=== PATIENT | female | born 1965 | race Caucasian/White ===

== ENCOUNTER 2019-11-12 08:52 | Emergency (ER) | payer MEDICARE, MEDICAID ==
[~2019-11-12] VITALS: Ht 175.2 cm; Wt 110.2 kg
--- OUTSIDE RECORDS SUMMARY | 2019-11-12 09:00 | XMS REPORT ---
Author Author [facility]ata [facility] Address [address] [place] [address] Care Team Providers Care Packing Machine Inspector Name Role Phone PAOLA LOVE Unavailable PROBLEMS Unknown Problems ALLERGIES Substance Reaction Event Type Date Status Penicillin V Potassium Unknown Drug Allergy Mar, Activ e Erythromycin Base Unknown Drug Allergy Mar, Active ENCOUNTERS Encounter Location Date Diagnosis [facility] [address] [id number] [address] [place] [id number] Sep, [facility] [address] [id number] [phone] Sep, [facility] [address] [id number] [address] [place] [address] [phone] Jun, Encounter for dental exam an d cleaning w/o abnormal findings Z01.20 [facility] [address] [id number] [address] [place] [address] [phone] Mar, Encounter for dental exam an d cleaning w/o abnormal findings Z01.20 [facility] [place] [address] [id number] [place] [phone] Mar, Dental examination Z01.20 [facility] [address] [id number] [address] [place] [address] [phone] Dec, Encounter for dental examina tion and cleaning without abnormal findings Z01.20 [facility] [address] [id number] [place] [phone] Oct, Dental examination Z01.20 [facility] [address] [id number] [address] [place] [address] [phone] Sep, Encounter for dental examina tion and cleaning without abnormal findings Z01.20 [facility] [address] [address] [id number] [phone] Sep, Dental examination Z01.20 [facility] [address] [id number] [address] [place] [address] [phone] Apr, Encounter for dental examina tion and cleaning without abnormal findings Z01.20 [facility] [place] [address] [id number] [phone] Apr, Dental examination Z01.20 [facility] [address] [id number] [address] [place] [address] [phone] Dec, Encounter for dental examina tion and cleaning without abnormal findings Z01.20 [facility] [place] [address] [id number][place] [phone] Sep, Dental examination Z01.20 [place] [address] [facility] [id number][place] [phone] August, Dental examination Z01.20 [facility] [address] [id number] [address] [place] [address] [phone] August, Encounter for dental examina tion and cleaning without abnormal findings Z01.20 [facility] [address] [id number] [address] [place] [address] [phone] Jun, Dental examination Z01.20 [facility] [address] [id number] [address] [place] [address] [phone] Apr, Encounter for dental examina tion Z01.20 [facility] [address] [id number] [address] [place] [address] [phone] Sep, Dental examination V72.2 IMMUNIZATIONS No Known Immunizations SOCIAL HISTORY Never Assessed REASON FOR VISIT PLAN OF CARE Activity Details Follow Up 3 Months Reason:recall VITAL SIGNS MEDICATIONS Medication Instructions Dosage Frequency Start Date End Date Duration S tatus BusPIRone HCl 10 MG Orally Twice a day 1 tablet 12h Active Ibuprofen 200 MG Orally every 6 hrs 1 tablet as needed 6h Active Atorvastatin Calcium 10 MG Orally Once a day 1 tablet 24h Active Acetaminophen 500 MG Orally every 6 hrs 1 capsule as needed 6h Active Clozapine 100 MG Orally Twice a day 1 tablet on the tong ue and allow to dissolve 12h Active Risperidone Microspheres 37.5 MG Active Therems M Active Delsym 30 MG/5ML Orally every 12 hrs 10 ml as needed 12h Active Docusate Sodium 100 MG Orally Once a day 1 capsule as needed 24h Active Loratadine 10 MG Orally Once a day 1 tablet 24h Active Metoprolol Succinate ER 100 MG Orally Once a day 1 tablet 24h Active Benztropine Mesylate 2 MG Orally Once a day 1 tablet at bedtime 24h Active Citalopram Hydrobromide 40 MG Orally Once a day 0.5 tablet 24h Active Tolterodine Tartrate ER 4 MG Orally Once a day 1 capsule 24h Active Lorazepam 0.5 MG Orally every 6 hrs 1 tablet as needed 6h Active RESULTS No Results PROCEDURES Procedure Date Ordered Result Body Site PERIODIC ORAL EXAMINATION Mar 31, 2017 BITEWINGS - FOUR FILMS Mar 31, 2017 INSTRUCTIONS MEDICATIONS ADMINISTERED No Known Medications
--- OUTSIDE RECORDS SUMMARY | 2019-11-12 09:00 | XMS REPORT ---
Author Author Beata FERNÁNDEZ [facility] Address [address] [place] [address] Phone Unavailable Care Team Providers Care Neurology Director Name Role Phone NATA FERNÁNDEZ Unavailable Unavailable PROBLEMS Type Condition ICD9-CM Code [id number] Code Onset Dates Condition S tatus SNOMED Code Problem Encounter for dental examination Z01.20 Active [id number] ALLERGIES Substance Reaction Event Type Date Status Penicillin V Potassium Unknown Drug Allergy Apr, Activ e Erythromycin Base Unknown Drug Allergy Apr, Active SOCIAL HISTORY No smoking Hx information available PLAN OF CARE Activity Details Follow Up 3 Months Reason:ON SITE REST ORATIVE WITH DR LAYTON VITAL SIGNS MEDICATIONS Unknown Medications RESULTS No Results PROCEDURES Procedure Date Ordered Related Diagnosis Body Site PROPHYLAXIS - ADULT Apr 17, 2016 TOPICAL FLUORIDE VARNISH Apr 17, 2016 IMMUNIZATIONS No Known Immunizations
--- OUTSIDE RECORDS SUMMARY | 2019-11-12 09:00 | XMS REPORT ---
Author Author Beata LAYTON Organization [facility] Address [address] [place] [address] Care Team Providers Care Horse Stud Worker Name Role Phone SHAE LAYTON Unavailable PROBLEMS Type Condition ICD9-CM Code [id number] Code Onset Dates Condition S tatus SNOMED Code Problem Encounter for dental examination Z01.20 Active [id number] ALLERGIES Unknown Allergies SOCIAL HISTORY No smoking Hx information available PLAN OF CARE Activity Details Follow Up prn Reason:restorative VITAL SIGNS MEDICATIONS Unknown Medications RESULTS No Results PROCEDURES Procedure Date Ordered Related Diagnosis Body Site PERIODIC ORAL EXAMINATION Apr 16, 2016 BITEWINGS - FOUR FILMS Apr 16, 2016 IMMUNIZATIONS No Known Immunizations
--- OUTSIDE RECORDS SUMMARY | 2019-11-12 09:00 | XMS REPORT | Continuity of Care Document ---
Author Organization Unknown Address Unknown Phone Unavailable Allergies There is no data. Medications There is no data. Problems There is no data. Procedures There is no data. Results Test Result Range CMP - 01/09/19 09:04 GLUCOSE 272 mg/dL 65-99 UREA NITROGEN (BUN) 16 mg/dL 7-25 CREATININE 1.20 mg/dL 0.50-1.05 eGFR NON-AFR. ITALIAN 52 mL/min/1.73m2 > OR = 60 eGFR 60 mL/min/1.73m2 > OR = 60 BUN/CREATININE RATIO 13 (calc) 6-22 SODIUM 144 mmol/L 135-146 POTASSIUM 4.4 mmol/L 3.5-5.3 CHLORIDE 106 mmol/L 98-110 CARBON DIOXIDE 31 mmol/L 20-32 CALCIUM 9.0 mg/dL 8.6-10.4 PROTEIN, TOTAL 6.2 g/dL 6.1-8.1 ALBUMIN 3.7 g/dL 3.6-5.1 GLOBULIN 2.5 g/dL (calc) 1.9-3.7 ALBUMIN/GLOBULIN RATIO 1.5 (calc) 1.0-2. 5 BILIRUBIN, TOTAL 0.8 mg/dL 0.2-1.2 ALKALINE PHOSPHATASE 76 U/L 33-130 AST 24 U/L 10-35 ALT 30 U/L 6-29 A1C - 03/20/19 08:11 HEMOGLOBIN A1c 7.1 % of total Hgb <5.7 CBC - 07/10/19 10:46 WHITE BLOOD CELL COUNT 10.2 Thousand/uL 3.8-10.8 RED BLOOD CELL COUNT 4.41 Million/uL 3.8 0-5.10 HEMOGLOBIN 13.4 g/dL 11.7-15.5 HEMATOCRIT 40.8 % 35.0-45.0 MCV 92.5 fL 80.0-100.0 MCH 30.4 pg 27.0-33.0 MCHC 32.8 g/dL 32.0-36.0 RDW 12.7 % 11.0-15.0 PLATELET COUNT 229 Thousand/uL 140-400 MPV 11.2 fL 7.5-12.5 ABSOLUTE NEUTROPHILS 7497 cells/uL 1500- 7800 ABSOLUTE LYMPHOCYTES 1724 cells/uL 850-3 900 ABSOLUTE MONOCYTES 724 cells/uL 200-950 ABSOLUTE EOSINOPHILS 204 cells/uL 15-500 ABSOLUTE BASOPHILS 51 cells/uL 0-200 NEUTROPHILS 73.5 % NRG LYMPHOCYTES 16.9 % NRG MONOCYTES 7.1 % NRG EOSINOPHILS 2.0 % NRG BASOPHILS 0.5 % NRG CMP - 10/03/19 08:22 GLUCOSE 163 mg/dL 65-99 UREA NITROGEN (BUN) 17 mg/dL 7-25 CREATININE 1.05 mg/dL 0.50-1.05 eGFR NON-AFR. ITALIAN 61 mL/min/1.73m2 > OR = 60 eGFR 70 mL/min/1.73m2 > OR = 60 BUN/CREATININE RATIO NOT APPLICABLE (calc) 6-22 SODIUM 144 mmol/L 135-146 POTASSIUM 4.5 mmol/L 3.5-5.3 CHLORIDE 105 mmol/L 98-110 CARBON DIOXIDE 43 mmol/L 20-32 CALCIUM 9.2 mg/dL 8.6-10.4 PROTEIN, TOTAL 6.6 g/dL 6.1-8.1 ALBUMIN 4.0 g/dL 3.6-5.1 GLOBULIN 2.6 g/dL (calc) 1.9-3.7 ALBUMIN/GLOBULIN RATIO 1.5 (calc) 1.0-2. 5 BILIRUBIN, TOTAL 0.9 mg/dL 0.2-1.2 ALKALINE PHOSPHATASE 69 U/L 37-153 AST 14 U/L 10-35 ALT 18 U/L 6-29 CBC - 10/03/19 08:22 WHITE BLOOD CELL COUNT 10.4 Thousand/uL 3.8-10.8 RED BLOOD CELL COUNT 4.67 Million/uL 3.8 0-5.10 HEMOGLOBIN 13.9 g/dL 11.7-15.5 HEMATOCRIT 42.9 % 35.0-45.0 MCV 91.9 fL 80.0-100.0 MCH 29.8 pg 27.0-33.0 MCHC 32.4 g/dL 32.0-36.0 RDW 12.3 % 11.0-15.0 PLATELET COUNT 233 Thousand/uL 140-400 MPV 10.8 fL 7.5-12.5 ABSOLUTE NEUTROPHILS 6822 cells/uL 1500- 7800 ABSOLUTE LYMPHOCYTES 2382 cells/uL 850-3 900 ABSOLUTE MONOCYTES 884 cells/uL 200-950 ABSOLUTE EOSINOPHILS 250 cells/uL 15-500 ABSOLUTE BASOPHILS 62 cells/uL 0-200 NEUTROPHILS 65.6 % NRG LYMPHOCYTES 22.9 % NRG MONOCYTES 8.5 % NRG EOSINOPHILS 2.4 % NRG BASOPHILS 0.6 % NRG A1C - 10/03/19 08:22 HEMOGLOBIN A1c 6.9 % of total Hgb <5.7 Encounters ACCT No. Visit Date/Time Discharge Status Pt. Type Provider Facility Loc./Unit Complaint 11/10/2019 07:30:00 [id number] 10/03/2019 08:00:00 Document Registration [id number] 07/10/2019 09:00:00 Document Registration [id number] 03/20/2019 08:00:00 Document Registration [id number] 01/09/2019 09:00:00 Document Registration
--- OUTSIDE RECORDS SUMMARY | 2019-11-12 09:00 | XMS REPORT ---
Author Author Beata FERNÁNDEZ Organization [facility] Address [address] [place] [address] Phone Unavailable Care Team Providers Care White Sugar Supervisor Name Role Phone NATA FERNÁNDEZ Unavailable Unavailable PROBLEMS Unknown Problems ALLERGIES Substance Reaction Event Type Date Status Penicillin V Potassium Unknown Drug Allergy Dec, Activ e Erythromycin Base Unknown Drug Allergy Dec, Active ENCOUNTERS Encounter Location Date Diagnosis [facility] [address] [id number] [place] [address] [phone] Jun, Encounter for dental exam an d cleaning w/o abnormal findings Z01.20 [facility] [address] [id number] [address] [place] [address] [phone] Mar, Encounter for dental exam an d cleaning w/o abnormal findings Z01.20 [facility] [place] [address] [id number] [place], [place] [phone] Mar, Dental examination Z01.20 [facility] [address] [id number] [address] [place] [address] [phone] Dec, Encounter for dental examina tion and cleaning without abnormal findings Z01.20 [facility] [address] [id number] [place] [phone] Oct, Dental examination Z01.20 [facility] [address] [id number] [address] [place] [address] [phone] Sep, Encounter for dental examina tion and cleaning without abnormal findings [facility]01.20 [facility] [address] [id number] [phone] Sep, Dental examination Z01.20 [facility] [address] [id number] [address] [place] [address] [phone] Apr, Encounter for dental examina tion and cleaning without abnormal findings Z01.20 [facility] [address] [id number] [phone] Apr, Dental examination Z01.20 [facility] [address] [id number] [address] [place] [address] [phone] Dec, Encounter for dental examina tion and cleaning without abnormal findings Z01.20 [facility] [place] [address] [facility] [address] [id number] [phone] Sep, Dental examination Z01.[address] [id number] [phone] August, Dental examination Z01.20 [facility] [address] [id number] [address] [place] [address] [phone] August, Encounter for dental examina tion and cleaning without abnormal findings Z01.20 [facility] [address] [id number] [address] [place] [address] [phone] Jun, Dental examination Z01.20 [facility] [address] [id number] [address] [place] [address] [phone] Apr, Encounter for dental examina tion Z01.20 [facility] [address] [id number] [address] [place] [address] [phone] Sep, Dental examination V72.2 IMMUNIZATIONS No Known Immunizations SOCIAL HISTORY Never Assessed REASON FOR VISIT ADULT OUTREACH [facility] PLAN OF CARE Activity Details Follow Up 3 Months Reason:ON SITE RECA LL VITAL SIGNS MEDICATIONS Medication Instructions Dosage Frequency Start Date End Date Duration S tatus BusPIRone HCl 10 MG Orally Twice a day 1 tablet 12h Active Delsym 30 MG/5ML Orally every 12 hrs 10 ml as needed 12h Active Acetaminophen 500 MG Orally every 6 hrs 1 capsule as needed 6h Active Citalopram Hydrobromide 40 MG Orally Once a day 0.5 tablet 24h Active Docusate Sodium 100 MG Orally Once a day 1 capsule as needed 24h Active Tolterodine Tartrate ER 4 MG Orally Once a day 1 capsule 24h Active Metoprolol Succinate ER 100 MG Orally Once a day 1 tablet 24h Active Clozapine 100 MG Orally Twice a day 1 tablet on the tong ue and allow to dissolve 12h Active Ibuprofen 200 MG Orally every 6 hrs 1 tablet as needed 6h Active Loratadine 10 MG Orally Once a day 1 tablet 24h Active Lorazepam 0.5 MG Orally every 6 hrs 1 tablet as needed 6h Active Atorvastatin Calcium 10 MG Orally Once a day 1 tablet 24h Active Benztropine Mesylate 2 MG Orally Once a day 1 tablet at bedtime 24h Active Therems M Active Risperidone Microspheres 37.5 MG Active RESULTS No Results PROCEDURES Procedure Date Ordered Result Body Site PROPHYLAXIS - ADULT Dec 11, 2016 TOPICAL FLUORIDE VARNISH Dec 11, 2016 INSTRUCTIONS MEDICATIONS ADMINISTERED No Known Medications
--- OUTSIDE RECORDS SUMMARY | 2019-11-12 09:00 | XMS REPORT ---
Author Author Beata LAYTON [facility] Address [address] [place] [address] Care Team Providers Care Clean In Places Operator Name Role Phone SHAE LAYTON Unavailable PROBLEMS Type Condition ICD9-CM Code [id number] Code Onset Dates Condition S tatus SNOMED Code Problem Encounter for dental examination Z01.20 Active [id number] ALLERGIES No Information SOCIAL HISTORY Never Assessed PLAN OF CARE Activity Details Follow Up Restorative Reason: VITAL SIGNS MEDICATIONS No Known Medications RESULTS No Results PROCEDURES Procedure Date Ordered Result Body Site AMALGAM-ONE SURFACE PRIMARY/PERM September 10, 2016 AMALGAM-ONE SURFACE PRIMARY/PERM September 10, 2016 Dental Outreach adjust balance September 10, 2016 Billing Notes on claim September 10, 2016 IMMUNIZATIONS No Known Immunizations
--- OUTSIDE RECORDS SUMMARY | 2019-11-12 09:00 | XMS REPORT ---
Author Author Beata GOVEA Organization [employer] Address Unknown Phone Unavailable Care Team Providers Care Team Assembler Name Role Phone KISHORE GOVEA CP Unavailable Allergies, Adverse Reactions, Alerts Substance Reaction Event Type Penicillin V Potassium Info Not Available Drug Allergy Erythromycin Base Info Not Available Drug Allergy Problems Problem Type Condition Code Onset Dates Condition Statu s Assessment Encounter for dental examination Z01.20 Active Problem Encounter for dental examination Z01.20 Active Medications Medication Code System Code Instructions Start Date End Date Status Dosage Acetaminophen [facility] [address]-15 500 MG Orally every 6 hrs 1 capsule as needed Citalopram Hydrobromide [facility] [address]-17 40 MG Orally Once a day 0.5 tablet Therems M [facility] 0 not defined Ibuprofen [facility] [address]-11 200 MG Orally every 6 hrs 1 tablet as needed Tolterodine Tartrate ER [facility] [address]-48 4 MG Orally Once a day 1 capsule BusPIRone HCl [facility] [address]-88 10 MG Orally Twice a day 1 tablet Risperidone Microspheres [facility] [address]-21 37.5 MG Intramuscular not defined Metoprolol Succinate ER [facility] [address]-39 100 MG Orally Once a day 1 tablet Clozapine [facility] [address]-24 100 MG Orally Twice a day 1 tablet on the tongue and allow to dissolve Delsym [facility] [address]-40 30 MG/5ML Orally every 12 hrs 10 ml as needed Docusate Sodium [facility] [address]-52 100 MG Orally Once a day 1 capsule as needed Lorazepam [facility] [address]-65 0.5 MG Orally every 6 hrs 1 tablet as needed Benztropine Mesylate [facility] [address]-20 2 MG Orally Once a day 1 tablet at bedtime Atorvastatin Calcium [facility] [address]-30 10 MG Orally Once a day 1 tablet Loratadine [facility] [address]-56 10 MG Orally Once a day 1 tablet Procedures Procedure Coding System Code Date INTRAORL-PERIAPICAL 1 FILM 74809 CPT-4 D0220 Apr 17, 2015 INTRAORL-PERIAPICAL EA ADD FILM CPT-4 D0230 Apr 17, 2015 PERIODIC ORAL EXAMINATION CPT-4 D0120 Apr BITEWINGS - FOUR FILMS CPT-4 D0274 Apr 17, 016 INTRAORL-PERIAPICAL EA ADD FILM CPT-4 D0230 Apr 17, 2015 TOPICAL FLUORIDE VARNISH CPT-4 D1206 Apr 17, 2015 PROPHYLAXIS - ADULT CPT-4 D1110 Apr 17, 2015 Vital Signs Date/Time: Apr 17, 2015 Blood Pressure Diastolic 70 mmHg Blood Pressure Systolic 112 mmHg Cardiac Monitoring Heart Rate 83 bpm Results No Known Results Summary Purpose [employer] Submission
--- OUTSIDE RECORDS SUMMARY | 2019-11-12 09:00 | XMS REPORT ---
Author Author Beata FERNÁNDEZ Organization [facility] Address [address] [place] [address] Phone Unavailable Care Team Providers Care Depot Manager Name Role Phone NATA FERNÁNDEZ Unavailable Unavailable PROBLEMS Type Condition ICD9-CM Code PRI67-EM Code Onset Dates Condition S tatus SNOMED Code Problem Encounter for dental examination Z01.20 Active 049359812 ALLERGIES Substance Reaction Event Type Date Status Penicillin V Potassium Unknown Drug Allergy Sep, Activ e Erythromycin Base Unknown Drug Allergy Sep, Active SOCIAL HISTORY Never Assessed PLAN OF CARE Activity Details Follow Up KER[place]/3 Months Reason:ON SITE RESTORATIVE/RECALL VITAL SIGNS MEDICATIONS Medication Instructions Dosage Frequency Start Date End Date Duration S tatus Ibuprofen 200 MG Orally every 6 hrs 1 tablet as needed 6h Active Lorazepam 0.5 MG Orally every 6 hrs 1 tablet as needed 6h Active Docusate Sodium 100 MG Orally Once a day 1 capsule as needed 24h Active Delsym 30 MG/5ML Orally every 12 hrs 10 ml as needed 12h Active Tolterodine Tartrate ER 4 MG Orally Once a day 1 capsule 24h Active Benztropine Mesylate 2 MG Orally Once a day 1 tablet at bedtime 24h Active BusPIRone HCl 10 MG Orally Twice a day 1 tablet 12h Active Therems M Active Risperidone Microspheres 37.5 MG Active Metoprolol Succinate ER 100 MG Orally Once a day 1 tablet 24h Active Atorvastatin Calcium 10 MG Orally Once a day 1 tablet 24h Active Loratadine 10 MG Orally Once a day 1 tablet 24h Active Clozapine 100 MG Orally Twice a day 1 tablet on the tong ue and allow to dissolve 12h Active Citalopram Hydrobromide 40 MG Orally Once a day 0.5 tablet 24h Active Acetaminophen 500 MG Orally every 6 hrs 1 capsule as needed 6h Active RESULTS No Results PROCEDURES Procedure Date Ordered Result Body Site PERIODIC ORAL EXAMINATION September 10, 2016 BITEWINGS - FOUR FILMS September 10, 2016 PROPHYLAXIS - ADULT September 10, 2016 IMMUNIZATIONS No Known Immunizations
--- OUTSIDE RECORDS SUMMARY | 2019-11-12 09:00 | XMS REPORT ---
Author Author Beata FERNÁNDEZ [facility] Address [address] [place] [address] Phone Unavailable Care Team Providers Care Political Reporter Name Role Phone NATA FERNÁNDEZ Unavailable Unavailable PROBLEMS Unknown Problems ALLERGIES Substance Reaction Event Type Date Status Penicillin V Potassium Unknown Drug Allergy Jun, Activ e Erythromycin Base Unknown Drug Allergy Jun, Active ENCOUNTERS Encounter Location Date Diagnosis [facility] [address] [place] [address] Sep, Encounter for dental exam and cleaning w/o abnormal findings Z01.20 [facility] [address] [id number] [place] [address] [phone] Jun, Encounter for dental exam an d cleaning w/o abnormal findings Z01.20 [facility] [address] [id number] [place] [address] [phone] Mar, Encounter for dental exam an d cleaning w/o abnormal findings Z01.20 [facility] [address] [place] [address] Mar, Dental examination Z01.20 [facility] [address] [id number] [address] [place] [address] [phone] Dec, Encounter for dental examina tion and cleaning without abnormal findings Z01.20 [facility] [address] [id number] [phone] Oct, Dental examination Z01.20 [facility] [address] [id number] [address] [place] [address] [phone] Sep, Encounter for dental examina tion and cleaning without abnormal findings [facility] [address] [id number] [phone] Sep, Dental examination Z01.20 [facility] [address] [id number] [address] [place] [address] [phone] Apr, Encounter for dental examina tion and cleaning without abnormal findings Z01.20 [facility] [address] [id number][place] [phone] Apr, Dental examination Z01.20 [facility] [address] [id number] [address] [place] [address] [phone] Dec, Encounter for dental examina tion and cleaning without abnormal findings Z01.20 [facility] [place] [address] [id number], [place] [phone] Sep, Dental examination Z01.20 [place] [address] [id number] [phone] August, Dental examination Z01.20 [facility] [address] [id number] [address] [place] [address] [phone] August, Encounter for dental examina tion and cleaning without abnormal findings Z01.20 [facility] [address] [id number] [address] [place] [address] [phone] Jun, Dental examination Z01.20 [facility] [address] [id number] [address] [place] [address] [phone] Apr, Encounter for dental examina tion Z01.20 [facility] [address] [id number] [address] [place] [address] [phone] Sep, Dental examination V72.2 IMMUNIZATIONS No Known Immunizations SOCIAL HISTORY Never Assessed REASON FOR VISIT ADULT OUTREACH [facility] PLAN OF CARE Activity Details Follow Up 3 Months Reason:ON SITE RECA LL VITAL SIGNS MEDICATIONS Medication Instructions Dosage Frequency Start Date End Date Duration S tatus Docusate Sodium 100 MG Orally Once a day 1 capsule as needed 24h Active Therems M Active Clozapine 100 MG Orally Twice a day 1 tablet on the ue and allow to dissolve 12h Active Delsym 30 MG/5ML Orally every 12 hrs 10 ml as needed 12h Active Metoprolol Succinate ER 100 MG Orally Once a day 1 tablet 24h Active Benztropine Mesylate 2 MG Orally Once a day 1 tablet at bedtime 24h Active Atorvastatin Calcium 10 MG Orally Once a day 1 tablet 24h Active Risperidone Microspheres 37.5 MG Active Loratadine 10 MG Orally Once a day 1 tablet 24h Active Lorazepam 0.5 MG Orally every 6 hrs 1 tablet as needed 6h Active Acetaminophen 500 MG Orally every 6 hrs 1 capsule as needed 6h Active Citalopram Hydrobromide 40 MG Orally Once a day 0.5 tablet 24h Active Ibuprofen 200 MG Orally every 6 hrs 1 tablet as needed 6h Active BusPIRone HCl 10 MG Orally Twice a day 1 tablet 12h Active Tolterodine Tartrate ER 4 MG Orally Once a day 1 capsule 24h Active RESULTS No Results PROCEDURES Procedure Date Ordered Result Body Site PROPHYLAXIS - ADULT June 30, 2017 TOPICAL FLUORIDE VARNISH June 30, 2017 INSTRUCTIONS MEDICATIONS ADMINISTERED No Known Medications
--- OUTSIDE RECORDS SUMMARY | 2019-11-12 09:00 | XMS REPORT ---
Author Author Beata FERNÁNDEZ Organization [facility] Address [address] [place] [address] Phone Unavailable Care Team Providers Care Technical Training Coordinator Name Role Phone NATA FERNÁNDEZ Unavailable Unavailable PROBLEMS Unknown Problems ALLERGIES Substance Reaction Event Type Date Status Penicillin V Potassium Unknown Drug Allergy Mar, Activ e Erythromycin Base Unknown Drug Allergy Mar, Active ENCOUNTERS Encounter Location Date Diagnosis [facility] [address] [id number] [address] [place] [phone] Sep, [facility] [address] [id number], [place] [phone] Sep, [facility] [address] [facility] [id number] [address] [place] [address] [phone] Jun, Encounter for dental exam an d cleaning w/o abnormal findings Z01.20 [facility] [address] [id number] [address] [place] [address] [phone] Mar, Encounter for dental exam an d cleaning w/o abnormal findings Z01.20 [facility] [place] [address] [id number] [place] [phone] Mar, Dental examination Z01.20 [facility] [address] [id number] [address] [place] [address] [phone] Dec, Encounter for dental examina tion and cleaning without abnormal findings Z01.20 [facility] [address] [id number] [place] [phone] Oct, Dental examination Z01.20 [facility] [address] [id number] [address] [place] [address] [phone] Sep, Encounter for dental examina tion and cleaning without abnormal findings [facility]01.20 [facility] [address] [id number][place] [phone] Sep, Dental examination Z01.20 [facility] [address] [id number] [address] [place] [address] [phone] Apr, Encounter for dental examina tion and cleaning without abnormal findings Z01.20 [facility] [address] [id number], [place] [phone] Apr, Dental examination Z01.20 [facility] [address] [id number] [address] [place] [address] [phone] Dec, Encounter for dental examina tion and cleaning without abnormal findings Z01.20 [facility] [place] [address] [facility] [address] [id number], [place] [phone] Sep, Dental examination Z01.20 [place] [id number] [facility] [address] [id number], [place] [phone] August, Dental examination Z01.20 [facility] [address] [id number] [address] [place] [address] [phone] August, Encounter for dental examina tion and cleaning without abnormal findings Z01.20 [facility] [address] [id number] [address] [place] [address] [phone] Jun, Dental examination Z01.20 [facility] [address] [id number] [address] [place] [address] [phone] Apr, Encounter for dental examina tion Z01.20 [facility] [address] [id number] [address] [place] [address] [phone] Sep, Dental examination V72.2 IMMUNIZATIONS No Known Immunizations SOCIAL HISTORY Never Assessed REASON FOR VISIT ADULT OUTREACH [facility] PLAN OF CARE Activity Details Follow Up SITE STAFF WILL CALL Reason: [place] [facility] VITAL SIGNS MEDICATIONS Medication Instructions Dosage Frequency Start Date End Date Duration S tatus Acetaminophen 500 MG Orally every 6 hrs 1 capsule as needed 6h Unknown Ibuprofen 200 MG Orally every 6 hrs 1 tablet as needed 6h Unknown Citalopram Hydrobromide 40 MG Orally Once a day 0.5 tablet 24h Unknown Benztropine Mesylate 2 MG Orally Once a day 1 tablet at bedtime 24h Unknown Docusate Sodium 100 MG Orally Once a day 1 capsule as needed 24h Unknown Lorazepam 0.5 MG Orally every 6 hrs 1 tablet as needed 6h Unknown Tolterodine Tartrate ER 4 MG Orally Once a day 1 capsule 24h Unknown Loratadine 10 MG Orally Once a day 1 tablet 24h Unknown Delsym 30 MG/5ML Orally every 12 hrs 10 ml as needed 12h Unknown Clozapine 100 MG Orally Twice a day 1 tablet on the tong ue and allow to dissolve 12h Unknown Risperidone Microspheres 37.5 MG Unknown BusPIRone HCl 10 MG Orally Twice a day 1 tablet 12h Unknown Atorvastatin Calcium 10 MG Orally Once a day 1 tablet 24h Unknown Metoprolol Succinate ER 100 MG Orally Once a day 1 tablet 24h Unknown Therems M Unknown RESULTS No Results PROCEDURES Procedure Date Ordered Result Body Site PROPHYLAXIS - ADULT Mar 31, 2017 TOPICAL FLUORIDE VARNISH Mar 31, 2017 INSTRUCTIONS MEDICATIONS ADMINISTERED No Known Medications
--- OUTSIDE RECORDS SUMMARY | 2019-11-12 09:00 | XMS REPORT ---
Author Author Beata LOVE [facility] [address] Address [address] [place] [address] Care Team Providers Care Hog Scalder Name Role Phone PAOLA LOVE Unavailable PROBLEMS Unknown Problems ALLERGIES Substance Reaction Event Type Date Status Penicillin V Potassium Unknown Drug Allergy Sep, Activ e Erythromycin Base Unknown Drug Allergy Sep, Active ENCOUNTERS Encounter Location Date Diagnosis [facility] [address] [place] [address] Sep, 18 Encounter for dental exam and cleaning w/o abnormal findings Z01.20 [facility] [id number] [place] [address] [phone] Jun, Encounter for dental exam an d cleaning w/o abnormal findings Z01.20 [facility] [id number] [place] [address] [phone] Mar, Encounter for dental exam an d cleaning w/o abnormal findings Z01.20 [facility] [place] [address] [place] [address] Mar, 17 Dental examination Z01.20 [facility] [id number] [place] [address] [phone] Dec, Encounter for dental examina tion and cleaning without abnormal findings [facility]01[facility] [address] [id number] [place] [phone] Oct, Dental examination Z01.20 [facility] [id number] [place] [address] [phone] Sep, Encounter for dental examina tion and cleaning without abnormal findings [facility]01.20 [facility] [address] [id number] [place] [phone] Sep, Dental examination Z01.20 [facility] [address] [id number] [address] [place] [address] [phone] Apr, Encounter for dental examina tion and cleaning without abnormal findings [facility]01.[address] [facility] [address] [id number] [phone] Apr, Dental examination Z01.20 [facility] [address] [id number] [address] [place] [address] [phone] Dec, Encounter for dental examina tion and cleaning without abnormal findings Z01.20 [facility] [address] [id number] [phone] Sep, Dental examination Z01.20 [facility] [address] [address] [id number] VIEW[place] [phone] August, Dental examination Z01.20 [facility] [address] [id number] [address] [place] [address] [phone] August, Encounter for dental examina tion and cleaning without abnormal findings Z01.20 [facility] [address] [id number] [address] [place] [address] [phone] Jun, Dental examination Z01.20 [facility] [address] [id number] [address] [place] [address] [phone] Apr, Encounter for dental examina tion Z01.20 [facility] [address] [id number] [address] [place] [address] [phone] Sep, Dental examination V72.2 IMMUNIZATIONS No Known Immunizations SOCIAL HISTORY Never Assessed REASON FOR VISIT Adult Outreach [facility] PLAN OF CARE Activity Details Follow Up 3 Months Reason:on site reca ll VITAL SIGNS MEDICATIONS Medication Instructions Dosage Frequency Start Date End Date Duration S tatus Citalopram Hydrobromide 40 MG Orally Once a day 0.5 tablet 24h Active Clozapine 100 MG Orally Twice a day 1 tablet on the tong ue and allow to dissolve 12h Active Benztropine Mesylate 2 MG Orally Once a day 1 tablet at bedtime 24h Active Atorvastatin Calcium 10 MG Orally Once a day 1 tablet 24h Active Loratadine 10 MG Orally Once a day 1 tablet 24h Active Therems M Active Tolterodine Tartrate ER 4 MG Orally Once a day 1 capsule 24h Active Ibuprofen 200 MG Orally every 6 hrs 1 tablet as needed 6h Active Docusate Sodium 100 MG Orally Once a day 1 capsule as needed 24h Active Delsym 30 MG/5ML Orally every 12 hrs 10 ml as needed 12h Active Risperidone Microspheres 37.5 MG Active BusPIRone HCl 10 MG Orally Twice a day 1 tablet 12h Active Acetaminophen 500 MG Orally every 6 hrs 1 capsule as needed 6h Active Lorazepam 0.5 MG Orally every 6 hrs 1 tablet as needed 6h Active Metoprolol Succinate ER 100 MG Orally Once a day 1 tablet 24h Active RESULTS No Results PROCEDURES Procedure Date Ordered Result Body Site PERIODIC ORAL EXAMINATION October 06, 2017 PROPHYLAXIS - ADULT October 06, 2017 INSTRUCTIONS MEDICATIONS ADMINISTERED No Known Medications
--- OUTSIDE RECORDS SUMMARY | 2019-11-12 09:00 | XMS REPORT ---
Author Author Beata FERNÁNDEZ Organization [facility] Address [address] [place] [address] Phone Unavailable Care Team Providers Care Finisher Wallboard And Plasterboard Name Role Phone NATA FERNÁNDEZ Unavailable Unavailable PROBLEMS Type Condition ICD9-CM Code ZCE49-ZD Code Onset Dates Condition S tatus SNOMED Code Problem Encounter for dental examination Z01.20 Active [id number] Assessment Encounter for dental examina tion and cleaning without abnormal findings Z01.20 Dec, Active [id number] ALLERGIES Substance Reaction Event Type Date Status Penicillin V Potassium Unknown Drug Allergy Dec, Activ e Erythromycin Base Unknown Drug Allergy Dec, Active SOCIAL HISTORY No smoking Hx information available PLAN OF CARE VITAL SIGNS MEDICATIONS Medication Instructions Dosage Frequency Start Date End Date Duration S tatus Clozapine 100 MG Orally Twice a day 1 tablet on the tong ue and allow to dissolve 12h Active Metoprolol Succinate ER 100 MG Orally Once a day 1 tablet 24h Active Docusate Sodium 100 MG Orally Once a day 1 capsule as needed 24h Active Delsym 30 MG/5ML Orally every 12 hrs 10 ml as needed 12h Active Risperidone Microspheres 37.5 MG Active Benztropine Mesylate 2 MG Orally Once a day 1 tablet at bedtime 24h Active Atorvastatin Calcium 10 MG Orally Once a day 1 tablet 24h Active Therems M Active Lorazepam 0.5 MG Orally every 6 hrs 1 tablet as needed 6h Active Loratadine 10 MG Orally Once a day 1 tablet 24h Active Acetaminophen 500 MG Orally every 6 hrs 1 capsule as needed 6h Active Ibuprofen 200 MG Orally every 6 hrs 1 tablet as needed 6h Active Citalopram Hydrobromide 40 MG Orally Once a day 0.5 tablet 24h Active Tolterodine Tartrate ER 4 MG Orally Once a day 1 capsule 24h Active BusPIRone HCl 10 MG Orally Twice a day 1 tablet 12h Active RESULTS No Results PROCEDURES Procedure Date Ordered Related Diagnosis Body Site PROPHYLAXIS - ADULT Dec 24, 2015 TOPICAL FLUORIDE VARNISH Dec 24, 2015 IMMUNIZATIONS No Known Immunizations
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
[2019-11-12 09:33] LABS: BASOPHILS # (AUTO) 0.1 10^3/uL (0.0-0.1); BASOPHILS % (AUTO) 1 % (0-10); EOSINOPHILS # (AUTO) 0.2 10^3/uL (0.0-0.3); EOSINOPHILS % (AUTO) 1 % (0-10); HEMATOCRIT 44 % (35-52); HEMOGLOBIN 14.7 G/DL (11.5-16.0); LYMPHOCYTES # (AUTO) 2.3 X 10^3 (1.0-4.0); LYMPHOCYTES % (AUTO) 18 % (12-44); MEAN CORPUSCULAR HEMOGLOBIN 30 PG (25-34); MEAN CORPUSCULAR HGB CONC 33 G/DL (32-36); MEAN CORPUSCULAR VOLUME 91 FL (80-99); MEAN PLATELET VOLUME 10.7 FL (7.4-10.4); MONOCYTES # (AUTO) 0.9 X 10^3 (0.0-1.0); MONOCYTES % (AUTO) 7 % (0-12); NEUTROPHILS # (AUTO) 8.9 X 10^3 (1.8-7.8); NEUTROPHILS % (AUTO) 72 % (42-75); PLATELET COUNT 238 10^3/uL (130-400); RED CELL DISTRIBUTION WIDTH 12.6 % (10.0-14.5); WHITE BLOOD COUNT 12.3 10^3/uL (4.3-11.0)
[2019-11-12 09:38] LABS: BACTERIA,URINE TRACE /HPF; BILIRUBIN,URINE NEGATIVE (NEGATIVE); CLARITY,URINE CLEAR; COLOR,URINE YELLOW; GLUCOSE, URINE (UA) NEGATIVE (NEGATIVE); KETONES,URINE NEGATIVE (NEGATIVE); LEUKOCYTE ESTERASE ,URINE NEGATIVE (NEGATIVE); NITRITE,URINE NEGATIVE (NEGATIVE); PH,URINE 7.5 (5-9); PROTEIN,URINE NEGATIVE (NEGATIVE); SQUAMOUS EPITHELIAL CELL,UR 0-2 /HPF
[2019-11-12 09:44] LABS: AMPHETAMINE SCREEN, URINE NEGATIVE (NEGATIVE); BARBITURATE SCREEN URINE NEGATIVE (NEGATIVE); BENZODIAZEPINES SCREEN URINE POSITIVE (NEGATIVE); CANNABINOID SCREEN, URINE NEGATIVE (NEGATIVE); COCAINE SCREEN URINE NEGATIVE (NEGATIVE); METHADONE STAT NEGATIVE (NEGATIVE); METHAMPHETAMINE SCREEN URINE S NEGATIVE (NEGATIVE); OPIATE SCREEN URINE NEGATIVE (NEGATIVE); OXYCODONE STAT NEGATIVE (NEGATIVE); PROPOXYPHENE STAT NEGATIVE (NEGATIVE); TRICYCLIC ANTIDEPRESSANTS SCRE NEGATIVE (NEGATIVE)
[2019-11-12 09:49] LABS: ACETAMINOPHEN < 10 UG/ML (10-30); ALANINE AMINOTRANSFERASE 21 U/L (0-55); ALBUMIN 4.4 GM/DL (3.2-4.5); ALKALINE PHOSPHATASE 75 U/L (40-136); BUN/CREATININE RATIO 14; CALCIUM 9.9 MG/DL (8.5-10.1); CARBON DIOXIDE 23 MMOL/L (21-32); CHLORIDE 102 MMOL/L (98-107); CREATININE SERUM 0.86 MG/DL (0.60-1.30); GFR ESTIMATED > 60; GLUCOSE 166 MG/DL (70-105); POTASSIUM 4.3 MMOL/L (3.6-5.0); SALICYLATE < 5.0 MG/DL (5.0-20.0); SODIUM 139 MMOL/L (135-145); TOTAL PROTEIN 7.4 GM/DL (6.4-8.2)
--- NOTE | 2019-11-12 09:54 | NUR ---
[facility] contacted at this time to arrange mental health evaluation.
[2019-11-12 11:28] VITALS: BP 128/72
== END 2019-11-12 11:24 | disposition home or self-care (01) ==
LOC: EDUNIT# 08:52 → ER FS 08:56
DX: R45.1 Restlessness and agitation (principal); F79 Unspecified intellectual disabilities; Z88.0 Allergy status to penicillin; Z88.1 Allergy status to other antibiotic agents
CPT/HCPCS: 36415; 80053; 80306; 81000; 85025; 99283; G0480 ×3; 80320; 80329